=== PATIENT | female | born 1930 | race Caucasian/White ===

== ENCOUNTER → 2019-03-22 | Outpatient (CLI) | payer MEDICARE, BC ==
[~2019-03-22] MED LIST: REGADENOSON 0.4 MG/5 ML DISP.SYRIN. IV ONE
--- NOTE | 2019-04-09 10:14 | PCVCIMAG ---
APPROVED REPORT Imaging Protocol: Rest Tc-99m/Stress Tc-99m 1 day Study performed: 03/22/2019 11:10:32 Indication: Chest Pain, Dyspnea Patient Location: Out-Patient Stress Nurse: Anneliese Cheatham RN, Charley Mclaughlin RN IN Tech:Mikaela Faye [facility] Ht: 5 ft 1 in Wt: 170 lbs BSA: 1.76 m2 HR: 69 bpm BP: 184/92 mmHg BMI: 32.11 Rhythm: Atrial Fibrillation Medical History Medical History: Age, hx PE, hx TIA, Afib, Family HX CAD Medications: Verapamil, Lanokin Allergies: HCTZ Resting Data Rest SPECT myocardial perfusion imaging was performed in supine position 45 minutes following the intravenous injection of 10.3 mCi of Tc-99m Sestamibi. Time of rest injection: 1030 Date: 03/22/2019 Administration Route: IV Administration Site: Right AC Pharmacologic Stress Pharmacologic stress test was performed by injecting Regadenoson 0.4 mg IV push over 10-15 seconds immediately followed by the intravenous injection of 31.2 mCi of Tc-99m Sestamibi. Time of stress injection: 1145 Date: 03/22/2019 Administration Route: IV Administration Site: Right AC Gated Stress SPECT was performed 45 minutes after stress injection. The images were gated to evaluate regional wall motion and calculate left ventricular ejection fraction. Stress Test Details Stress Test: Pharmacologic stress testing performed using 0.4 mg of regadenoson per 5 mL given IV over 10 seconds. Reason for pharmacologic stress test: hip problems. HRMax Heart Rate (APMHR): 132 bpm Resting HR: 69 bpmTarget HR (85% APMHR): 112 bpm Max HR Achieved: 90 bpm % of APMHR: 68 Recovery HR: 83 bpm BP Resting BP: 184/92 mmHg Max BP: 189/86 mmHg Recovery BP: 168/80 mmHg ECG Resting ECG: Atrial Fibrillation Stress ECG: Atrial Fibrillation Arrhythmia: None Recovery ECG: Atrial Fibrillation Clinical Reason for Termination: Completed protocol Stress Symptoms: None No complications. Stress ECG Conclusion 1. Adequate response to intravenous Lexiscan 2. Inadequate heart rate for ECG diagnosis Study Data Post stress, the left ventricular ejection was 72%.. SSS: 2 SRS: 0 SDS: 2 TID = 1.08. Perfusion There is a medium area of mildly reduced uptake in the mid and apical segment of the anterior wall which is seen on the stress images as well as the resting images. This area thickens and moves normally and is most consistent with attenuation artifact. Wall Motion Normal left ventricular wall motion. Nuclear Conclusion ECG Findings: non-ischemic Clinical Findings: negative for ischemia Nuclear Findings: negative for ischemia Exercise Capacity: not assessed Left Ventricular Function: normal 1. Low risk study with anteroapical photopenia consistent with breast attenuation artifact 2. Post stress left ventricular ejection fraction 72% with normal contractility <Conclusion> 1. Adequate response to intravenous Lexiscan 2. Inadequate heart rate for ECG diagnosis
== END | disposition home or self-care (01) ==
LOC: PCVCIMAG 09:53
PROVIDERS: ATTEND Family Medicine
DX: R07.9 Chest pain, unspecified (principal); I48.91 Unspecified atrial fibrillation; I25.10 Atherosclerotic heart disease of native coronary artery without angina pectoris; Z82.49 Family history of ischemic heart disease and other diseases of the circulatory system
CPT/HCPCS: 78452; 93017; A9500; J2785